=== PATIENT | female | born 1935 | race African-American/Black ===

== ENCOUNTER 2019-11-12 16:56 | Inpatient (IN) | payer MEDICARE ==
[~2019-11-12] VITALS: Ht 162.6 cm; Wt 47.8 kg
[2019-11-12] MEDS ORDERED: TRAM50TA3 PO (17:06)
[2019-11-12] MEDS ORDERED: AMLO10TA80 PO (17:06)
[2019-11-12] MEDS ORDERED: GABA-529 PO (17:06)
[2019-11-12 18:07] LABS: BASOPHILS % 1.1 % (0.0-2.0); EOSINOPHILS % 4.1 % (0.0-5.0); HEMATOCRIT. 32.3 % (36.0-48.0); HEMOGLOBIN. 10.9 g/dL (12.0-16.0); LYMPHOCYTES % 15.8 % (20.0-50.0); MEAN PLATELET VOLUME 7.5 fl (7.4-10.4); MONOCYTES % 9.2 % (2.0-8.0); NEUTROPHILS % 69.8 % (40.0-76.0); PLATELET 231 x1000/uL (130-400); RED BLOOD CELL COUNT 3.63 mill/uL (4.2-5.4); RED CELL DISTRIBUTION WIDTH 13.9 % (11.6-14.6)
[2019-11-12 18:12] LABS: CHLORIDE 109 mEq/L (98-107)
[2019-11-12 18:23] LABS: INR 1.1; PROTHROMBIN TIME 11.3 sec (9.6-11.0)
[2019-11-12 19:20] LABS: D-DIMER 1.63 mg/L FEU (<0.50); PARTIAL THROMBOPLASTIN TIME 25.3 sec (23.4-31.0)
[2019-11-12] MEDS ORDERED: ACETAMINOPHEN 325MG TABLET PO PRN (19:45)
[2019-11-12] MEDS ORDERED: HYDRALAZINE 20MG/ML VIAL IV PRN (19:45)
[2019-11-12] MEDS ORDERED: GABAPENTIN 100MG CAPSULE PO PRN (19:45)
[2019-11-12] MEDS ORDERED: ASPIRIN 81MG TABLET PO ONE (19:45)
[2019-11-12] MEDS ORDERED: NITROGLYCERIN 0.4MG TABLET SL SL PRN (19:45)
[2019-11-12] MEDS ORDERED: ONDANSETRON HCL 4MG/2ML INJ IV PRN (19:45)
[2019-11-12] MEDS: AMLODIPINE 10MG TABLET PO SCH (20:00)
[2019-11-12] MEDS: CLONIDINE 0.1MG TABLET PO PRN (20:07)
[2019-11-12] MEDS: TRAMADOL 50MG TABLET PO PRN (20:30)
[2019-11-12] MEDS: CARVEDILOL 3.125 MG TABLET PO SCH (21:00)
[2019-11-12] MEDS ORDERED: IOHEXOL-350 100 ML BOTTLE ONE (23:16)
[2019-11-12 23:40] VITALS: BP 98/56
[2019-11-12] MEDS: HEPARIN 5000 UNITS/ML VIAL SUBCUT SCH (23:48)
[2019-11-13] VITALS: BP 98/56
[2019-11-13] MEDS: TRAZODONE HCL 50MG TABLET PO PRN ×2 (00:31→21:12)
[2019-11-13] MEDS: TRAMADOL 50MG TABLET PO PRN ×3 (01:58→20:52)
[2019-11-13 04:00] VITALS: BP 102/36
[2019-11-13 06:39] LABS: BASOPHILS % 1.9 % (0.0-2.0); EOSINOPHILS % 7.8 % (0.0-5.0); HEMATOCRIT. 27.1 % (36.0-48.0); HEMOGLOBIN. 9.2 g/dL (12.0-16.0); LYMPHOCYTES % 20.6 % (20.0-50.0); MEAN CORPUSCULAR HEMOGLOBIN 30.3 pg (28.0-32.0); MEAN CORPUSCULAR VOLUME 89.2 fL (81.0-99.0); MEAN PLATELET VOLUME 7.8 fl (7.4-10.4); MONOCYTES % 9.6 % (2.0-8.0); NEUTROPHILS % 60.1 % (40.0-76.0); PLATELET 205 x1000/uL (130-400); RED BLOOD CELL COUNT 3.05 mill/uL (4.2-5.4)
[2019-11-13 06:42] LABS: CHLORIDE 108 mEq/L (98-107)
[2019-11-13 06:55] LABS: LDL CHOLESTEROL 97 mg/dL (5-100)
[2019-11-13 06:56] LABS: HDL CHOLESTEROL 68 mg/dL (40-59); T4 FREE 1.13 ng/dL (0.76-1.46)
[2019-11-13 08:00] VITALS: BP 115/44
[2019-11-13] MEDS: CARVEDILOL 3.125 MG TABLET PO SCH ×2 (09:29→20:40)
[2019-11-13] MEDS: AMLODIPINE 10MG TABLET PO SCH (09:29)
[2019-11-13] MEDS: HEPARIN 5000 UNITS/ML VIAL SUBCUT SCH ×2 (09:30→20:40)
[2019-11-13] MEDS: ASPIRIN 81MG EC TABLET PO SCH (10:26)
[2019-11-13 11:55] LABS: TOTAL IRON BINDING CAPACITY 229 ug/dL (250-450)
[2019-11-13 12:00] VITALS: BP 119/48
[2019-11-13] MEDS: NITROGLYCERIN OINT 1GM/INCH UDPKT TD SCH ×2 (12:00→16:34)
[2019-11-13 12:24] LABS: VITAMIN B12 SERUM 704 pg/mL (211-911)
[2019-11-13] MEDS ORDERED: POLYVINYL ALCOHOL OPHTH DROPS 15ML BOTHEYE PRN (14:15)
[2019-11-13] MEDS: BENZOCAINE (ORAJEL) PASTE MM SCH ×2 (16:46→20:41)
[2019-11-13] MEDS: POLYVINYL ALCOHOL OPHTH DROPS 15ML BOTHEYE SCH (17:00)
[2019-11-13 20:00] VITALS: BP 148/46
[2019-11-14] VITALS: BP 110/44
[2019-11-14] MEDS: POLYVINYL ALCOHOL OPHTH DROPS 15ML BOTHEYE SCH ×4 (00:11→17:40)
[2019-11-14] MEDS: NITROGLYCERIN OINT 1GM/INCH UDPKT TD SCH ×4 (00:16→17:41)
[2019-11-14 04:05] VITALS: BP 126/42
[2019-11-14] MEDS: TRAMADOL 50MG TABLET PO PRN ×3 (04:14→22:25)
[2019-11-14 06:26] LABS: BASOPHILS % 1.9 % (0.0-2.0); EOSINOPHILS % 11.9 % (0.0-5.0); LYMPHOCYTES % 30.9 % (20.0-50.0); MEAN CORPUSCULAR HEMOGLOBIN 29.9 pg (28.0-32.0); MEAN CORPUSCULAR VOLUME 89.4 fL (81.0-99.0); MEAN PLATELET VOLUME 7.8 fl (7.4-10.4); MONOCYTES % 9.5 % (2.0-8.0); NEUTROPHILS % 45.8 % (40.0-76.0); PLATELET 200 x1000/uL (130-400); RED BLOOD CELL COUNT 3.02 mill/uL (4.2-5.4); RED CELL DISTRIBUTION WIDTH 13.7 % (11.6-14.6)
[2019-11-14 07:23] LABS: CHLORIDE 107 mEq/L (98-107)
[2019-11-14 08:00] VITALS: BP 117/45
[2019-11-14] MEDS: SODIUM CHLORIDE 0.9% 1,000 ML IV SCH ×2 (09:18→21:55)
[2019-11-14] MEDS: CARVEDILOL 3.125 MG TABLET PO SCH ×2 (09:20→21:57)
[2019-11-14] MEDS: AMLODIPINE 10MG TABLET PO SCH (09:20)
[2019-11-14] MEDS: ASPIRIN 81MG EC TABLET PO SCH (09:20)
[2019-11-14] MEDS: PHENAZOPYRIDINE HCL 100MG TABLET PO SCH ×3 (09:20→17:40)
[2019-11-14] MEDS: BENZOCAINE (ORAJEL) PASTE MM SCH ×2 (09:21→17:40)
[2019-11-14] MEDS: HEPARIN 5000 UNITS/ML VIAL SUBCUT SCH ×2 (09:21→21:57)
[2019-11-14] MEDS ORDERED: POLYETHYLENE GLYCOL 3350 (17GM) 1 DOSE PACK PO PRN (11:15)
[2019-11-14 12:00] VITALS: BP 128/45
[2019-11-14] MEDS ORDERED: MAGNESIUM HYDROXIDE 400MG/5ML 30ML UDC PO PRN (15:00)
[2019-11-14] MEDS ORDERED: BISACODYL 10MG SUPP PR PRN (15:00)
[2019-11-14] MEDS ORDERED: DOCUSATE SODIUM 100MG CAPSULE PO PRN (15:00)
[2019-11-14] MEDS ORDERED: SENNOSIDES/DOCUSATE SOD 8.6/50MG TABLET PO PRN (15:00)
[2019-11-14 16:00] VITALS: BP 126/46
[2019-11-14 20:00] VITALS: BP 142/50
[2019-11-14] MEDS ORDERED: ZOLPIDEM TARTRATE 5MG TABLET PO PRN (21:00)
[2019-11-14] MEDS: TRAZODONE HCL 50MG TABLET PO PRN (22:16)
[2019-11-15] VITALS: BP 143/84
[2019-11-15] MEDS: POLYVINYL ALCOHOL OPHTH DROPS 15ML BOTHEYE SCH ×5 (00:19→23:53)
[2019-11-15] MEDS: NITROGLYCERIN OINT 1GM/INCH UDPKT TD SCH ×4 (00:19→17:27)
[2019-11-15 04:00] VITALS: BP 122/45
[2019-11-15] MEDS: SODIUM CHLORIDE 0.9% 1,000 ML IV SCH ×2 (06:12→22:28)
[2019-11-15 07:12] LABS: BASOPHILS % 1.9 % (0.0-2.0); EOSINOPHILS % 10.6 % (0.0-5.0); HEMATOCRIT. 26.5 % (36.0-48.0); MEAN CORPUSCULAR HEMOGLOBIN 30.6 pg (28.0-32.0); MEAN CORPUSCULAR VOLUME 89.8 fL (81.0-99.0); MEAN PLATELET VOLUME 7.8 fl (7.4-10.4); MONOCYTES % 10.4 % (2.0-8.0); NEUTROPHILS % 48.1 % (40.0-76.0); PLATELET 191 x1000/uL (130-400); RED BLOOD CELL COUNT 2.95 mill/uL (4.2-5.4); RED CELL DISTRIBUTION WIDTH 14.1 % (11.6-14.6)
[2019-11-15 07:18] LABS: CHLORIDE 111 mEq/L (98-107)
[2019-11-15 08:00] VITALS: BP 137/45
[2019-11-15] MEDS: CARVEDILOL 3.125 MG TABLET PO SCH ×2 (09:19→20:23)
[2019-11-15] MEDS: AMLODIPINE 10MG TABLET PO SCH (09:19)
[2019-11-15] MEDS: ASPIRIN 81MG EC TABLET PO SCH (09:20)
[2019-11-15] MEDS: TRAMADOL 50MG TABLET PO PRN ×2 (09:20→18:39)
[2019-11-15] MEDS: HEPARIN 5000 UNITS/ML VIAL SUBCUT SCH ×2 (09:21→20:23)
[2019-11-15] MEDS ORDERED: REGADENOSON 0.4 MG/5 ML IV SCH (10:45)
[2019-11-15 12:00] VITALS: BP 133/46
[2019-11-15] MEDS: BENZOCAINE (ORAJEL) PASTE MM SCH ×2 (13:04→17:21)
[2019-11-15] MEDS: PHENAZOPYRIDINE HCL 100MG TABLET PO SCH ×3 (13:05→17:26)
[2019-11-15] MEDS ORDERED: REGADENOSON 0.4 MG/5 ML IV ONE (14:23)
[2019-11-15 16:00] VITALS: BP 163/54
[2019-11-15 20:00] VITALS: BP 158/58
[2019-11-15] MEDS: TRAZODONE HCL 50MG TABLET PO PRN (23:53)
[2019-11-16] VITALS: BP 162/58
[2019-11-16] MEDS: CLONIDINE 0.1MG TABLET PO PRN (00:06)
[2019-11-16] MEDS: NITROGLYCERIN OINT 1GM/INCH UDPKT TD SCH ×2 (00:06→06:21)
[2019-11-16] MEDS: TRAMADOL 50MG TABLET PO PRN ×2 (02:32→11:55)
[2019-11-16 04:00] VITALS: BP 111/46
[2019-11-16] MEDS: PHENAZOPYRIDINE HCL 100MG TABLET PO SCH ×2 (06:20→11:43)
[2019-11-16] MEDS: POLYVINYL ALCOHOL OPHTH DROPS 15ML BOTHEYE SCH ×2 (06:21→11:43)
[2019-11-16 08:00] VITALS: BP 112/42
[2019-11-16] MEDS: CARVEDILOL 3.125 MG TABLET PO SCH (09:00)
[2019-11-16] MEDS: AMLODIPINE 10MG TABLET PO SCH (09:13)
[2019-11-16] MEDS: BENZOCAINE (ORAJEL) PASTE MM SCH (09:17)
[2019-11-16] MEDS: HEPARIN 5000 UNITS/ML VIAL SUBCUT SCH (09:17)
[2019-11-16] MEDS: ASPIRIN 81MG EC TABLET PO SCH (09:17)
[2019-11-16 09:32] LABS: CHLORIDE 112 mEq/L (98-107)
[2019-11-16 10:58] LABS: BASOPHILS % 1.7 % (0.0-2.0); EOSINOPHILS % 7.3 % (0.0-5.0); HEMATOCRIT. 28.5 % (36.0-48.0); HEMOGLOBIN. 9.6 g/dL (12.0-16.0); LYMPHOCYTES % 29.3 % (20.0-50.0); MEAN CORPUSCULAR HEMOGLOBIN 30.3 pg (28.0-32.0); MEAN CORPUSCULAR VOLUME 90.2 fL (81.0-99.0); MEAN PLATELET VOLUME 7.6 fl (7.4-10.4); MONOCYTES % 10.4 % (2.0-8.0); NEUTROPHILS % 51.3 % (40.0-76.0); PLATELET 196 x1000/uL (130-400); RED BLOOD CELL COUNT 3.16 mill/uL (4.2-5.4); RED CELL DISTRIBUTION WIDTH 13.4 % (11.6-14.6)
[2019-11-16] MEDS ORDERED: MOM PO (11:31)
[2019-11-16] MEDS ORDERED: DOCU-150 PO (11:31)
[2019-11-16] MEDS ORDERED: TETR15DR17 OP (11:31)
[2019-11-16] MEDS ORDERED: COR3 PO (11:31)
[2019-11-16] MEDS ORDERED: SENN-3 PO (11:31)
[2019-11-16] MEDS ORDERED: HYDR-4134 MT (11:33)
[2019-11-16] MEDS: SODIUM CHLORIDE 0.9% 1,000 ML IV SCH (11:55)
[2019-11-16 12:00] VITALS: BP 124/82
[2019-11-16 13:01] VITALS: BP 124/82
[2019-11-16] MEDS ORDERED: TRAM50TA3 MT (13:21)
[2019-11-16] MEDS ORDERED: HYDRALAZINE HCL 25MG TABLET PO SCH (14:00)
[2019-11-16 16:00] VITALS: BP 130/44
== END 2019-11-16 17:00 | disposition home health service (06) | DRG 206 ==
LOC: ER 16:56 → EDBEDREQ 19:56 → EDBEDREQTM 19:56 → ENRESERV 20:59 → 5WST 23:32
PROVIDERS: ADMIT Internal Medicine; ATTEND Internal Medicine
DX: M94.0 Chondrocostal junction syndrome [Tietze] (principal); I31.3 Pericardial effusion (noninflammatory); I16.1 Hypertensive emergency; E78.5 Hyperlipidemia, unspecified; G47.00 Insomnia, unspecified; G62.9 Polyneuropathy, unspecified; G89.29 Other chronic pain; I25.10 Atherosclerotic heart disease of native coronary artery without angina pectoris; J44.9 Chronic obstructive pulmonary disease, unspecified; K59.00 Constipation, unspecified; M19.90 Unspecified osteoarthritis, unspecified site; D63.8 Anemia in other chronic diseases classified elsewhere; F41.9 Anxiety disorder, unspecified; K21.9 Gastro-esophageal reflux disease without esophagitis; M48.00 Spinal stenosis, site unspecified; M54.40 Lumbago with sciatica, unspecified side; R33.9 Retention of urine, unspecified; K11.7 Disturbances of salivary secretion; R30.0 Dysuria; R00.0 Tachycardia, unspecified; R79.89 Other specified abnormal findings of blood chemistry; R68.89 Other general symptoms and signs; Z95.5 Presence of coronary angioplasty implant and graft; Z79.899 Other long term (current) drug therapy
CPT/HCPCS: 36415; 71045; 71275; 78452; 80053; 80061; 82270; 82607; 83036; 83540; 83550; 83735; 83880; 84439; 84443; 84484; 85025; 85044; 85379; 93005; 93017; 93306; 93970; 97116; 97162; 97530; 99285; A9500; J1644; J2785; J7030; Q9967